=== PATIENT | male | born 1990 | race Asian ===

== ENCOUNTER 2019-06-21 15:12 | Emergency (ER) | payer SELFPAY ==
[~2019-06-21] VITALS: Ht 180.3 cm; Wt 82.6 kg
[2019-06-21 15:14] VITALS: BP 105/64
--- NOTE | 2019-06-21 15:42 | NUR ---
PT TAKEN TO ER BED 01
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
[2019-06-21] MEDS: LIDOCAINE MPF 1% 10 MG/ML VIAL INJ ONE (17:45)
--- NOTE | 2019-06-21 18:02 | NUR ---
SUTURES WERE PLACED BY DR. ASH. Patient discharged with v/s stable. Written and verbal after care instructions given and explained. Patient alert, oriented and verbalized understanding of instructions. Ambulatory with steady gait. All questions addressed prior to discharge BY DR. ASH. ID band removed. Patient advised to follow up with PMD. Rx of NAPROSYN given. Patient educated on indication of medication including possible reaction and side effects BY DR. ASH. D/C BY DR. ASH. Opportunity to ask questions provided and answered.
[2019-06-21 18:04] VITALS: BP 105/64
== END 2019-06-21 18:02 | disposition home or self-care (01) ==
LOC: MED 15:12
DX: S01.112A Laceration without foreign body of left eyelid and periocular area, initial encounter (principal); Z88.0 Allergy status to penicillin; X58.XXXA Exposure to other specified factors, initial encounter; Y93.89 Activity, other specified; Y92.34 Swimming pool (public) as the place of occurrence of the external cause; Y99.8 Other external cause status
CPT/HCPCS: 12011; 99283; J2001

== ENCOUNTER 2019-06-28 11:20 | Emergency (ER) | payer SELFPAY ==
[~2019-06-28] VITALS: Ht 172.7 cm; Wt 83.9 kg
--- NOTE | 2019-06-28 11:28 | NUR ---
Patient ambulated to bed 4 with family. RN evaluating patient at bedside.
[2019-06-28 11:33] VITALS: BP 113/69
--- NOTE | 2019-06-28 12:00 | NUR ---
PT TOLERATED SUTURE REMOVAL WELL. NAD. VSS. VERB ACCEPTABLE LEVEL OF COMFORT.
[2019-06-28 12:17] VITALS: BP 120/74
== END 2019-06-28 12:17 | disposition home or self-care (01) ==
LOC: MED 11:20
DX: T14.8XXD Other injury of unspecified body region, subsequent encounter (principal); Z48.02 Encounter for removal of sutures
CPT/HCPCS: 99281

== ENCOUNTER 2019-06-28 13:51 | Emergency (ER) | payer SELFPAY ==
[~2019-06-28] VITALS: Ht 177.8 cm; Wt 86.6 kg
[2019-06-28 14:11] VITALS: BP 131/61
--- NOTE | 2019-06-28 14:18 | NUR ---
PT AMBULATED TO BED 06.
--- NOTE | 2019-06-28 14:32 | NUR ---
PT HAD ADDITIONAL QUESTION FOR MD. QUESTIONS WERE ANSWERED, PT HAD NO FURTHER QUESTIONS OR CONCERNS
== END 2019-06-28 14:15 | disposition home or self-care (01) ==
LOC: MED 13:51
DX: Z28.89 Immunization not carried out for other reason (principal)
CPT/HCPCS: 90471; 90715; 99283